=== PATIENT | female | born 1995 | race Caucasian/White ===

== ENCOUNTER 2017-10-26 22:45 | Emergency (ER) | payer MEDICAID ==
[~2017-10-26] VITALS: Ht 160 cm; Wt 59.0 kg
[~2017-10-26 22:45] MED LIST: COL100 PO; MAC100 PO; NORCO1 TA2 PO
[2017-10-26 22:55] VITALS: Ht 160 cm; Wt 59.0 kg
[2017-10-27 02:28] VITALS: BP 123/67
== END 2017-10-27 02:28 | disposition home or self-care (01) ==
LOC: ED 22:45
DX: R07.89 Other chest pain (principal); R51 Headache
CPT/HCPCS: J1885; Q0092

== ENCOUNTER 2019-01-16 22:34 | Emergency (ER) | payer SELFPAY ==
[~2019-01-16] VITALS: Ht 160 cm; Wt 63.5 kg
[2019-01-16 22:44] VITALS: Ht 160 cm; Wt 63.5 kg
[2019-01-16 23:26] VITALS: BP 129/85
== END 2019-01-16 23:26 | disposition home or self-care (01) ==
LOC: ED 22:34
DX: N64.4 Mastodynia (principal); N63.0 Unspecified lump in unspecified breast; Z90.49 Acquired absence of other specified parts of digestive tract

== ENCOUNTER 2020-02-14 19:21 | Emergency (ER) | payer MEDICAID ==
[~2020-02-14] VITALS: Ht 160 cm; Wt 61.2 kg
[2020-02-14 19:55] VITALS: BP 113/71
== END 2020-02-14 19:55 | disposition home or self-care (01) ==
LOC: ED 19:21
DX: H66.92 Otitis media, unspecified, left ear (principal); H92.01 Otalgia, right ear; Z90.49 Acquired absence of other specified parts of digestive tract